=== PATIENT | female | born 1995 | race Caucasian/White ===

== ENCOUNTER → 2020-09-29 12:55 | Outpatient (CLI) | payer OTHER, SELFPAY ==
--- NOTE | ~2020-09-29 | US_ITS ---
EXAMINATION: US OB transvaginal DATE: 09/29/2020 13:26 INDICATION: Early . History of spontaneous . TECHNIQUE: Real-time transvaginal pelvic ultrasound was performed. COMPARISON: None. FINDINGS: The uterus measures 7.6 x 4.2 x 5.7 cm. There is an intrauterine gestational sac. A yolk sac is ident ified. The crown rump length measures 4 mm, which correlates with an estimated gestational age of 6 weeks and 0 day(s) (+/-) 4 day(s). heart motion is identified measuring 113 beats per min [place] (bpm) by M-mode Doppler. The right ovary measures 3.5 x 1.7 x 2.5 cm. The left ovary measures 3.2 x 1.8 x 3.3 cm. There is no free fluid in the pelvis. IMPRESSION: 1. Single living intrauterine gestation with estimated date of delivery of 05/25/2021. Reviewed, dictated and finalized at location A. SPEED OPERATOR IMPRESSION: 1. Single living intrauterine gestation with estimated date of delivery of 05/06.
== END ==
PROVIDERS: Visit Provider Obstetrics & Gynecology
DX: O09.291 Supervision of pregnancy with other poor reproductive or obstetric history, first trimester (principal); Z3A.01 Less than 8 weeks gestation of pregnancy
CPT/HCPCS: 76817

== ENCOUNTER → 2020-10-07 15:52 | Outpatient (CLI) | payer OTHER, SELFPAY ==
--- NOTE | ~2020-10-07 | US_ITS ---
EXAMINATION: US OB transvaginal DATE: 10/07/2020 16:15 INDICATION: Spotting during first trimester of TECHNIQUE: Real-time pelvic ultrasound was performed. The interpreting radiologist was not present fo r the study. COMPARISON: 09/29/2020 FINDINGS: The uterus measures 9.2 x 6.2 x 6.5. There is an intrauterine gestational sac. A yolk sac and p ole are identified. The crown rump length measures 11 mm, which correlates with an estimated gestatio nal age of 7 weeks and 1 day which is exactly concordant with estimated gestational age based upon th e prior ultrasound. heart motion is identified measuring 154 beats per minute (bpm) by M-mode D oppler. 9 x 5 x 4 mm hypoechoic region at the left side of the gestational sac, possibly a small subc horionic hematoma however on the cine grayscale images there appears to be some internal flow in this more likely represents a feeding vessel. The right ovary 2.8 x 1.4 x 1.8. The left ovary 3.1 x 2.1 x 3.2. 1.9 cm thick-walled centrally hypoec hoic likely corpus luteum cyst in the left ovary. There is an additional 1.5 similar anechoic cyst/fo llicle at the left ovary. There is no free fluid in the pelvis. IMPRESSION: 1. Single living fetus with heart rate of 154 bpm. 2. Gestational age by ultrasound of 7 weeks 1 day(s) with ultrasound estimated date of delivery (RICKI) of 05/25/2021. 3. 9 x 5 x 4 mm hypoechoic region at the left-sided gestational sac is equivocal for subchorionic hem atoma versus feeding vessel. Reviewed, dictated and finalized at location A. LING MACHINE OPERATOR IMPRESSION: 1. Single living fetus with heart rate of 154 bpm. 2. Gestational age by ultrasound of 7 weeks 1 day(s) with ultrasound estimated date of delivery (RICKI) of 05/25/2021. 3. 9 x 5 x 4 mm hypoechoic region at the left-sided gestational sac is equivoca l for subchorionic hematoma versus feeding vessel.
== END ==
PROVIDERS: Visit Provider Obstetrics & Gynecology
DX: O26.851 Spotting complicating pregnancy, first trimester (principal); Z3A.01 Less than 8 weeks gestation of pregnancy
CPT/HCPCS: 76817

== ENCOUNTER → 2020-10-21 08:20 | Outpatient (CLI) | payer OTHER, SELFPAY ==
--- NOTE | ~2020-10-21 | US_ITS ---
EXAMINATION: US OB limited DATE: 10/21/2020 08:39 INDICATION: Follow-up subchorionic hemorrhage TECHNIQUE: Real-time transabdominal obstetric ultrasound. FINDINGS: Comparison to ultrasound dated 10/07/2020 The uterus measures 10.3 x 6.6 x 8.5 cm. There is an intrauterine gestational sac, with pole id entified. heart rate is 177 BPM. No evidence for subchorionic hemorrhage on the current study. No free fluid in the pelvis. IMPRESSION: 1. Single living intrauterine with heart rate of 177 BPM. 2: Interval resolution of subchorionic hemorrhage. Reviewed, dictated and finalized at location A. ICAPPER HARNESS RACING
== END ==
PROVIDERS: Visit Provider Obstetrics & Gynecology
DX: O36.8910 Maternal care for other specified fetal problems, first trimester, not applicable or unspecified (principal); Z3A.00 Weeks of gestation of pregnancy not specified
CPT/HCPCS: 76815

== ENCOUNTER 2020-12-15 19:54 | Emergency (ER) | payer OTHER, SELFPAY ==
[2020-12-15 19:57] VITALS: BP 115/71; PULSE 67; RESP 20; TEMP 36.2; O2SAT 99
--- NOTE | 2020-12-15 20:11 | ECG_ITS ---
Measurements Intervals [place] Rate: 61 P: 35 [place]: 138 QRS: 43 QRSD: 106 T: 15 QT: 417 QTc: 422 Interpretive Statements SINUS RHYTHM BASELINE WANDER- I, II, AVR, AVL, AVF, V4-V6 BORDERLINE ECG Electronically Signed On 12-16-2020 6:26:16 COIL REWIND MACHINE OPERATOR by Harjinder Aguirre D.O.
[2020-12-15 20:23] LABS: Basophils Percent Auto 0.3 % (0.2-1.2); Eosinophils Absolute Auto 0.2 K/mm3 (0-0.3); Eosinophils Percent Auto 1.4 % (0-4.4); Hematocrit 37.2 % (37.0-47.0); Hemoglobin 12.9 g/dL (12.0-15.0); Immature Granulocyte Absolute 0.03 K/mm3 (0.00-0.031); Immature Granulocyte Percent A 0.3 % (0-0.5); Lymphocytes Absolute Auto 2.65 K/mm3 (0.9-3.2); Lymphocytes Percent Auto 24.6 % (18.3-44.2); Mean Corpuscular HGB Conc 34.7 g/dl (32-36); Mean Corpuscular Hemoglobin 30.9 pg (26-34); Mean Platelet Volume 9.3 fl (7.4-10.4); Monocytes Absolute Auto 0.7 K/mm3 (0.1-0.6); Monocytes Percent Auto 6.7 % (2.6-8.5); Neutrophils Absolute Auto 7.2 K/mm3 (1.3-6.7); Neutrophils Percent Auto 66.7 % (45.5-73.1); Platelet Count Result 216 k/mm3 (150-375); Red Blood Count 4.18 M/mm3 (4.2-5.4); Red Cell Distribution Width 12.6 % (11.5-14.5); White Blood Count 10.8 K/mm3 (4.5-10.0)
[2020-12-15 20:35] LABS: Anion Gap 6 mmol/L (8-16); Blood Urea Nitrogen 13 mg/dL (7-17); Calcium 9.5 mg/dL (8.4-10.2); Carbon Dioxide 26 mmol/L (22-30); Chloride 103 mmol/L (98-107); Estimated Glomerular Filt Rate > 60; Glucose 80 mg/dL (65-105); Potassium 3.4 mmol/L (3.4-5.0); Sodium 135 mmol/L (137-145)
[2020-12-15 20:39] VITALS: BP 97/61; PULSE 58
[2020-12-15 20:40] VITALS: BP 106/66; PULSE 61
[2020-12-15 20:41] VITALS: BP 106/70; PULSE 62
[2020-12-15] MEDS: SODIUM CHLORIDE 0.9% IV 1,000 ML 999 ML IV CONT (21:03)
[2020-12-15 22:07] VITALS: BP 94/61; PULSE 60; RESP 16; TEMP 36.6; O2SAT 97
--- NOTE | 2020-12-15 22:11 | ED.GENADULT ---
HPI - General Adult General Chief complaint: Syncope Stated complaint: syncope, 17 weeks Time Seen by Provider: 12/15/20 20:46 History of Present Illness HPI narrative: Patient is a 25-year-old female presents the emergency department with chief complaint of syncope. Patient reports that she was in the bathroom having a bowel movement and she started to feel as though she was going to pass out and briefly passed out. Patient states that she currently feels back to normal at this time denies chest pain denies shortness of breath. The patient reports that she has had a similar episode several weeks ago. Patient states that she has no other medical problems with except that she is 17 weeks . Related Data Home Medications Medication Instructions Recorded Confirmed docusate sodium [Stool Softener] PO 12/15/20 [id number] fum-folic ac-om3 pkg PO 12/15/20 [Daily ] sertraline mg 12/15/20 Allergies Allergy/AdvReac Type Severity Reaction Status Date / Time No Known Allergies Allergy Verified 12/15/20 20:05 Review of Systems Review of Systems: Narrative: A 10 system review of systems was completed on the patient and is negative except for what is stated in the HPI. Nursing and ancillary documentation was reviewed. PMFSH Comments Patient has negative past medical history Social history the patient denies smoking drinking or illicit drug use Exam Narrative: Exam Narrative: GENERAL: Well-appearing, well-nourished, and in no acute distress. HEAD: Normocephalic, atraumatic. EYES: PERRLA and EOMI. ENT: Nares clear, no rhinorrhea or epistaxis. Mucous membranes moist. NECK: Supple. CHEST: Clear to auscultation. No respiratory distress. HEART: Regular rate and rhythm. No murmur heard. Normal peripheral pulses. ABDOMEN: Soft, nontender, nondistended, normal active bowel sounds. EXTREMITIES: Normal range of motion. No edema. SKIN: Warm, dry, no rash. NEURO: No focal deficits. Alert and oriented x3. PSYCH: Normal mood and affect. Course Vital Signs Vital signs: Vital Signs Temperature 36.2 C L 12/15/20 19:57 Pulse Rate 67 12/15/20 19:57 Respiratory Rate 20 12/15/20 19:57 Blood Pressure 115/71 12/15/20 19:57 Pulse Oximetry 99 12/15/20 19:57 Temperature 36.6 C 12/15/20 22:07 Pulse Rate 60 12/15/20 22:07 Respiratory Rate 16 12/15/20 22:07 Blood Pressure 94/61 L 12/15/20 22:07 Pulse Oximetry 97 12/15/20 22:07 Medical Decision Making Vital Signs Vital Signs: Vital Signs Temperature 36.2 C L 12/15/20 19:57 Pulse Rate 67 12/15/20 19:57 Respiratory Rate 20 12/15/20 19:57 Blood Pressure 115/71 12/15/20 19:57 Pulse Oximetry 99 12/15/20 19:57 Temperature 36.6 C 12/15/20 22:07 Pulse Rate 60 12/15/20 22:07 Respiratory Rate 16 12/15/20 22:07 Blood Pressure 94/61 L 12/15/20 22:07 Pulse Oximetry 97 12/15/20 22:07 Lab Data Result diagrams: 12/15/20 20:14 12/15/20 20:14 Labs: Lab Results 12/15/20 12/15/20 12/15/20 Range/Units 20:14 20:14 21:59 WBC 10.8 H (4.5-10.0) K/mm3 RBC 4.18 L (4.2-5.4) M/mm3 Hgb 12.9 (12.0-15.0) g/dL Hct 37.2 (37.0-47.0) % MCV 89.0 (80-100) fl MCH 30.9 (26-34) pg MCHC 34.7 (32-36) g/dl RDW 12.6 (11.5-14.5) % Plt Count 216 (150-375) k/mm3 MPV 9.3 (7.4-10.4) fl Immature Gran % (Auto) 0.3 (0-0.5) % Neut % (Auto) 66.7 (45.5-73.1) % Lymph % (Auto) 24.6 (18.3-44.2) % Pacific % (Auto) 6.7 (2.6-8.5) % Eos % (Auto) 1.4 (0-4.4) % Baso % (Auto) 0.3 (0.2-1.2) % Lymph # (Auto) 2.65 (0.9-3.2) K/mm3 Pacific # (Auto) 0.7 H (0.1-0.6) K/mm3 Eos # (Auto) 0.2 (0-0.3) K/mm3 Baso # (Auto) 0.0 (0.0-0.1) K/mm3 Abs Immat Gran (auto) 0.03 (0.00-0.031) K/mm3 Absolute Neuts (auto) 7.2 H (1.3-6.7) K/mm3 Absolute Nucleated RBC 0.0 (0.0-0.012) K/mm3 Nucleated RBC % 0.0 (0
[2020-12-15 22:12] LABS: Add Urine Microscopic? YES; Amorphous Sediment Urine Few; Appearance Urine Cloudy (Clear); Bacteria Urine Trace /hpf; Bilirubin Urine Negative (Negative); Blood Urine Negative (Negative); Color Urine Yellow (Yellow); Glucose Urine UA Negative (Negative); Ketones Urine Negative (Negative); Leukocyte Esterase Ur Negative LEU/UL (Negative); Mucus Urine Rare /lpf; Nitrate Urine Negative (Negative); Protein Urine Negative (Negative); Specific Grav Ur 1.021 (1.001-1.035); Squamous Epithelial Cell Urine Many /hpf (Few); Urobilinogen Urine Negative mg/dL (<2.0)
[2020-12-15 22:44] VITALS: BP 110/72; PULSE 76; RESP 18; O2SAT 99
== END 2020-12-15 22:46 | disposition home or self-care (01) ==
PROVIDERS: Emergency Medicine; Emergency Provider Emergency Medicine; PCP Obstetrics & Gynecology
DX: R55 Syncope and collapse (principal)
CPT/HCPCS: 36415; 80048; 81001; 85025; 93005; 96360; 99284; J7030

== ENCOUNTER → 2020-12-22 15:25 | Outpatient (CLI) | payer OTHER, SELFPAY ==
--- NOTE | ~2020-12-22 | US_ITS ---
US OB >= 14 weeks Fetus DATE: 12/22/2020 16:05 INDICATION: anatomy screen TECHNIQUE: Real-time imaging and Doppler analysis COMPARISON: 10/21/2020 limited obstetrical ultrasound examination 09/29/2020 and 10/07/2020 obstetrical ultrasound examinations FINDINGS: Live maxwell intrauterine gestation, fetus in vertex presentation, longitudinal lie. Anterior placenta, lower margin 4.7 cm above the internal os. Subjectively normal amount of amniotic fluid. No evidence of cerebral ventriculomegaly. The cerebellum appears normal. Normal nuchal fo ld. Upper lip appears normal. The spine appears unremarkable on transverse and longitudinal joan ging. 4 chamber heart. Right outflow tract is demonstrated. Left outflow tract not optimally de monstrated. heart rate of 141 bpm. The diaphragm is intact. Fluid is demonstrated in the stomac h and urinary bladder. The kidneys appear unremarkable, without evidence of hydronephrosis. Thr ee-vessel umbilical cord with normal appearing insertion. 4 extremities are demonstrated. Biparietal diameter 4.35 cm; 19 weeks 1 day Head circumference 15.53 cm; 18 weeks 3 days Abdominal circumference 12.96 cm; 18 weeks 4 days Femur length 2.77 cm; 18 weeks 3 days Composite age by Hadlock formula based upon current biometrics would be 18 weeks 5 days +/- 1 week 2 days with RICKI is 05/20/2021, compared to 05/25/2021 by prior obstetrical ultrasound examinations. Estimated weight is 243.4 +/- 36.5 g Estimated weight-GP: 76.5% Head circumference/abdominal circumference 1.20, within normal range of 1.09 -1.26 Femur length/head circumference 17.84, within normal range of 16.01-18.21. IMPRESSION: Normal anatomy screen Reviewed, dictated and finalized at Location A. Reviewed, dictated and finalized at location B. PARTNER IMPRESSION: Normal anatomy screen
== END ==
PROVIDERS: Visit Provider Obstetrics & Gynecology
DX: Z34.92 Encounter for supervision of normal pregnancy, unspecified, second trimester (principal); Z3A.18 18 weeks gestation of pregnancy
CPT/HCPCS: 76805

== ENCOUNTER 2021-03-13 11:09 | Emergency (ER) | payer OTHER, SELFPAY ==
--- NOTE | ~2021-03-13 | CT_ITS ---
EXAMINATION: CTA chest PE protocol DATE: 03/13/2021 13:55 CDT INDICATION: Elevated d-dimer. Syncope. Shortness of breath. TECHNIQUE: Computed tomographic angiography (CTA) of the chest was performed with 100 mL Omnipaque-35 0 intravenous contrast. The dose-length product was 244.15 mGy-cm. Maximum intensity projection 3D-re constructions of the aorta and other arteries were constructed by the technologist on a separate work station. Automated exposure control and iterative reconstruction technique were employed. COMPARISON: Chest x-ray dated 03/13/2021 FINDINGS: Study is technically adequate without evidence for pulmonary embolism. No significant pleur al or pericardial effusion. Cardiomegaly. Small hiatal hernia. No thoracic lymphadenopathy. Shallow i nspiration with crowding of the pulmonary vessels. There is ill-defined groundglass opacification thr oughout both lungs, likely due to expiratory imaging. No pneumothorax. No endobronchial lesion. IMPRESSION: 1. No evidence for pulmonary embolism. 2: Diffuse ill-defined groundglass opacification, likely due to expiratory imaging. Pneumonia less fa vored. Reviewed, dictated and finalized at location A. IMPRESSION: 1. No evidence for pulmonary embolism. 2: Diffuse ill-defined groundglass opacification, likely due to expiratory imag ing. Pneumonia less favored.
--- NOTE | ~2021-03-13 | US_ITS ---
EXAMINATION:US venous doppler LE BI INDICATION:Elevated d-dimer TECHNIQUE: Multiple grayscale, color flow and Doppler images of the right and left lower extremity de ep venous systems were obtained and reviewed. COMPARISON:No prior studies for comparison. FINDINGS: The common femoral, superficial femoral and popliteal veins demonstrate normal respiratory variation, augmentation and compressibility. Color flow is also seen within the posterior tibial, pe roneal, greater saphenous and profunda veins. IMPRESSION: 1: No lower extremity deep venous thrombosis. Reviewed, dictated and finalized at location A.
--- NOTE | ~2021-03-13 | XR_ITS ---
EXAMINATION: XR chest 2V 03/13/2021 12:49 INDICATION: Syncope. Weakness. PROCEDURE: AP and lateral views of the chest COMPARISON: No prior studies for comparison. FINDINGS: The lungs are clear. The cardiomediastinal silhouette is within normal limits. There are no pleural effusions. There is no pneumothorax suspected. IMPRESSION: 1: NO ACUTE CARDIOPULMONARY DISEASE. Reviewed, dictated and finalized at location A.
[2021-03-13 11:20] VITALS: BP 107/68; PULSE 70; RESP 18; O2SAT 97
--- NOTE | 2021-03-13 11:31 | ECG_ITS ---
Measurements Intervals [place] Rate: 69 P: 29 [place]: 145 QRS: 63 QRSD: 92 T: 43 QT: 389 QTc: 418 Interpretive Statements SINUS RHYTHM MINIMAL Q WAVES- HIGH LATERAL LEADS BORDERLINE ECG Electronically Signed On 03-13-2021 16:42:15 CDT by Harjinder Aguirre D.O.
--- NOTE | 2021-03-13 12:07 | ED.SYNCOPE ---
HPI - Syncope General Chief Complaint: Syncope Stated Complaint: Vomiting, Syncopal Episodes Time Seen by Provider: 03/13/21 11:42 Source: patient Mode of arrival: ambulatory Limitations: no limitations History of Present Illness HPI narrative: This is a 25-year-old , 30 weeks , that presents to the emergency department for syncopal episodes. Reports they have been ongoing over the last couple of months. Reports they have been more frequent over the last couple of weeks. Reports she will feel very hot and nauseous and then gets lightheaded. Reports she then passes out. She had 3 episodes in a row this morning. She also vomited after the episode. Denies hitting her head or any other specific injuries. Her significant other is with her who reports she is very sleepy after these episodes. Does report history of syncopal episode years ago. Reports some shortness of breath with exertion. Denies fever, chest pain, abdominal pain, dysuria, vaginal bleeding, or lower extremity edema. Related Data Home Medications Medication Instructions Recorded Confirmed [id number] fum-folic ac-om3 1 PO DAILY 12/15/20 [Daily ] sertraline 100 mg PO DAILY 03/13/21 03/13/21 Allergies Allergy/AdvReac Type Severity Reaction Status Date / Time No Known Allergies Allergy Verified 03/13/21 11:24 Review of Systems Review of Systems: Narrative: CONSTITUTIONAL: Denies fever CARDIOVASCULAR: Denies chest pain, or edema. RESPIRATORY: Reports dyspnea. GASTROINTESTINAL: Reports vomiting GENITOURINARY: Denies dysuria NEUROLOGIC: Denies headache, numbness, or weakness. All systems reviewed & are unremarkable except as noted in HPI and below PMFSH Past Medical History Medical History (Updated 03/13/21 @ 14:39 by Martha Turner PA-C) History of depression Social History Social History (Updated 03/13/21 @ 12:13 by Martha Turner PA-C) Smoking status: Never smoker Gender identity (if verbalized by the patient): Female Exam Narrative: Exam Narrative: GENERAL: Well-appearing, well-nourished, and in no acute distress. HEAD: Normocephalic, atraumatic. EYES: PERRLA and EOMI. ENT: Nares clear, no rhinorrhea or epistaxis. Mucous membranes moist. Oropharynx without tonsillar hypertrophy exudate or other lesions. Bilateral TMs pearly singh non-bulging NECK: Supple. No adenopathy or masses. CHEST: Clear to auscultation. No respiratory distress. No wheezes rales or rhonchi HEART: Regular rate and rhythm. No murmur heard. Normal peripheral pulses. ABDOMEN: Gravid, nontender EXTREMITIES: Normal range of motion. No edema. SKIN: Warm, dry, no rash. NEURO: No focal deficits. Alert and oriented x3. Cranial nerves II through XII grossly intact PSYCH: Normal mood and affect Course Consultations Consultation #1: Spoke with Dr. Briceno about patient and workup. Would like patient to be sent over to OB for nonstress test. She will follow-up with patient in clinic Date: 03/13/21 Time: 14:40 Consultation #2: Spoke with Dr. Wheatley about patient and work-up who would like patient to call tomorrow to make an appointment for follow-up Date: 03/13/21 Time: 14:40 Vital Signs Vital signs: Vital Signs Pulse Rate 70 03/13/21 11:20 Respiratory Rate 18 03/13/21 11:20 Blood Pressure 107/68 03/13/21 11:20 Pulse Oximetry 97 03/13/21 11:20 Pulse Rate 63 03/13/21 12:36 Respiratory Rate 20 03/13/21 12:30 Blood Pressure 102/55 L 03/13/21 12:36 Pulse Oximetry 99 03/13/21 12:30 MDM - Syncope MDM Narrative Medical decision making narrative: Patient presents to the emergency department, 30 weeks , for multiple syncopal episodes over the last couple of months. Reports that are becoming more frequent over the last couple of weeks. Reports she will feel nauseous and lightheaded and then loses consciousness. She does not report any prodromal chest pain, shortness of breath or palpitations. She does report s
[2021-03-13 12:25] LABS: Basophils Percent Auto 0.3 % (0.2-1.2); Eosinophils Absolute Auto 0.1 K/mm3 (0-0.3); Eosinophils Percent Auto 0.7 % (0-4.4); Immature Granulocyte Percent A 0.7 % (0-0.5); Lymphocytes Absolute Auto 1.49 K/mm3 (0.9-3.2); Lymphocytes Percent Auto 9.8 % (18.3-44.2); Mean Corpuscular HGB Conc 34.3 g/dl (32-36); Mean Corpuscular Hemoglobin 30.5 pg (26-34); Mean Corpuscular Volume 89.1 fl (80-100); Mean Platelet Volume 9.5 fl (7.4-10.4); Monocytes Absolute Auto 0.6 K/mm3 (0.1-0.6); Monocytes Percent Auto 3.9 % (2.6-8.5); Neutrophils Absolute Auto 12.8 K/mm3 (1.3-6.7); Neutrophils Percent Auto 84.6 % (45.5-73.1); Platelet Count Result 224 k/mm3 (150-375); Red Blood Count 3.93 M/mm3 (4.2-5.4); Red Cell Distribution Width 11.9 % (11.5-14.5); White Blood Count 15.2 K/mm3 (4.5-10.0)
[2021-03-13 12:30] VITALS: BP 102/59; PULSE 58; RESP 20; O2SAT 99
[2021-03-13] MEDS: SODIUM CHLORIDE 0.9% IV 1,000 ML 999 ML IV CONT (12:33)
[2021-03-13] MEDS: ONDANSETRON INJ 4 MG/2 ML VIAL IV PUSH (12:33)
[2021-03-13 12:34] VITALS: BP 99/59; PULSE 56
[2021-03-13 12:34] LABS: Alanine Aminotransferase 17 U/L (4-35); Albumin Level 3.7 g/dL (3.5-5.1); Alkaline Phosphatase 90 U/L (38-126); Anion Gap 9 mmol/L (8-16); Aspartate Amino Transferase 27 U/L (14-36); Bilirubin,Total 0.2 mg/dL (0.2-1.3); Blood Urea Nitrogen 8 mg/dL (7-17); Calcium 9.3 mg/dL (8.4-10.2); Carbon Dioxide 20 mmol/L (22-30); Chloride 107 mmol/L (98-107); Estimated CRCL calculation 161 ml/min; Estimated Glomerular Filt Rate > 60; Glucose 103 mg/dL (65-105); Lipase 81 U/L (23-300); Potassium 3.9 mmol/L (3.4-5.0); Sodium 136 mmol/L (137-145)
[2021-03-13 12:35] VITALS: BP 98/61; PULSE 55
[2021-03-13 12:35] LABS: INR 0.9; Partial Thromboplastin Time 24.3 SECONDS (22.3-36.8); Prothrombin Time 12.6 Seconds (11.1-14.7)
[2021-03-13 12:36] VITALS: BP 102/55; PULSE 63
[2021-03-13 12:38] LABS: D Dimer 1.11 ug/mL (<0.48)
[2021-03-13 12:43] LABS: Add Urine Microscopic? YES; Appearance Urine Cloudy (Clear); Bacteria Urine Trace /hpf; Bilirubin Urine Negative (Negative); Blood Urine Negative (Negative); Glucose Urine UA Negative (Negative); Ketones Urine Trace mg/dL (Negative); Leukocyte Esterase Ur 2+ LEU/UL (Negative); Mucus Urine Heavy /lpf; Nitrate Urine Negative (Negative); Protein Urine 1+ mg/dL (Negative); Specific Grav Ur 1.019 (1.001-1.035); Squamous Epithelial Cell Urine Many /hpf (Few); Urobilinogen Urine Negative mg/dL (<2.0); WBC Urine 21-30 /hpf
[2021-03-13 12:44] LABS: Color Urine Light Yellow (Yellow)
[2021-03-13 12:45] LABS: Troponin I < 0.012 ng/mL (0.000-0.034)
[2021-03-13 15:08] VITALS: BP 102/55; PULSE 63; RESP 20; O2SAT 100
--- NOTE | 2021-03-16 12:35 | WPDHOLTEREM ---
Holter/Event Monitor Holter/Event Monitor Date of procedure: 03/13/21 Procedure Type: 48 hour holter monitor Indications: Syncope Conclusion: 1. 48 hour holter monitor on 03/13/21. 2. Underlying rhythm is sinus rhythm. HR range 47-140 bpm; average HR 74 bpm. 3. There are 9 premature supraventricular complexes. No supraventricular tachycardia. 4. There is 1 premature ventricular complex. No ventricular tachycardia. 5. No sinoatrial or atrioventricular blocks. No significant pauses greater than 2 seconds. 6. No symptoms available for correlation.
== END 2021-03-13 15:10 | disposition home or self-care (01) ==
PROVIDERS: Physician Assistant; Emergency Provider Emergency Medicine; PCP Family Medicine
DX: O26.893 Other specified pregnancy related conditions, third trimester (principal); R55 Syncope and collapse; O99.343 Other mental disorders complicating pregnancy, third trimester; F32.9 Major depressive disorder, single episode, unspecified; Z3A.30 30 weeks gestation of pregnancy; R94.31 Abnormal electrocardiogram [ECG] [EKG]; R91.8 Other nonspecific abnormal finding of lung field; I49.3 Ventricular premature depolarization
CPT/HCPCS: 36415; 59025; 71046; 71275; 80053; 81001; 83690; 84484; 85025; 85380; 85610; 85730; 87086; 93005; 93225; 93226; 93970; 96361; 96374; 99284; J2405; J7030; Q9967

== ENCOUNTER 2021-03-13 15:03 | Outpatient (RCR) | payer OTHER, SELFPAY ==
[2021-03-13 15:57] VITALS: BP 109/72; PULSE 79
== END 2021-05-05 07:44 | disposition home or self-care (01) ==
LOC: ANHOBOP 15:03
PROVIDERS: PCP Family Medicine; Visit Provider Obstetrics & Gynecology
DX: O99.891 Other specified diseases and conditions complicating pregnancy (principal); R55 Syncope and collapse; Z3A.30 30 weeks gestation of pregnancy
CPT/HCPCS: 59025

== ENCOUNTER → 2021-04-21 13:59 | Outpatient (CLI) | payer OTHER, SELFPAY ==
--- NOTE | ~2021-04-21 | US_ITS ---
EXAMINATION: US OB follow up DATE: 04/21/2021 14:29 INDICATION: Small for gestational age TECHNIQUE: Real-time transabdominal obstetric ultrasound. FINDINGS: Comparison to multiple prior studies sequentially, with oldest reviewed study dated 2019. There is a single living fetus in vertex presentation. The placenta is anterior without placenta pre via. cardiac activity and movement is noted with a heart rate of 161 beats per minute. T he amniotic fluid volume is normal. WINSTON measures 17.4 cm. The following biometric data were obtained: BPD: 90mm corresponds to gestational age 36 weeks 5 days. Head circumference: 326mm corresponds to gestational age 37 weeks 0 days. Abdominal circumference: 332mm corresponds to gestational age 37 weeks 1 days. Femur length: 70mm corresponds to gestational age 35 weeks 5 days. Estimated weight: 3010grams +/- 452grams., 74th percentile IMPRESSION: 1. Single living intrauterine in vertex presentation with an estimated gestational age of 35 weeks 1 days by inititial ultrasound. EDC by initial ultrasound is 05/25/2021. 2. Normal placenta. Reviewed, dictated and finalized at location A. IMPRESSION: 1. Single living intrauterine in vertex presentation with an estimat ed gestational age of 35 weeks 1 days by inititial ultrasound. EDC by initial u ltrasound is 05/25/2021. 2. Normal placenta.
== END ==
PROVIDERS: Visit Provider Nurse Practitioner
DX: O36.5933 Maternal care for other known or suspected poor fetal growth, third trimester, fetus 3 (principal); Z3A.35 35 weeks gestation of pregnancy
CPT/HCPCS: 76816

== ENCOUNTER 2021-05-04 07:45 | Inpatient (IN) | payer OTHER, SELFPAY ==
[2021-05-04] VITALS (184 sets, daily range): BP systolic 79–120; BP diastolic 43–92; PULSE 47–239; RESP 16; TEMP 36.4–37.1; O2SAT 85–100
--- NOTE | 2021-05-04 08:50 | WPDANESEPP ---
Anes - Eval Pre Procedure Procedure: labor epidural Date/Time: 05/04/21 08:50 Surgeon: nikhil Pre Op Diagnosis: rom Patient Data Age: 25 Gender: F Height: Weight: Last Vital Signs Pulse 76 05/04/21 08:30 BP 107/69 05/04/21 08:30 Allergies Allergy/AdvReac Type Severity Reaction Status Date / Time No Known Allergies Allergy Verified 04/20/21 13:47 Home Medications Medication Instructions Recorded Confirmed Type [id number] fum-folic ac-om3 1 PO DAILY 12/15/20 History [Daily ] sertraline 100 mg PO DAILY 03/13/21 03/13/21 History ergocalciferol (vitamin D2) 1,250 mcg PO WEEKLY 04/20/21 04/20/21 History [Vitamin D2] Patient hx anesthesia problems: none Family hx anesthesia problems: none PMFSH Past Medical History Medical History (Updated 03/14/21 @ 00:00 by Piyush Meredith) History of depression Family History Family History (Updated 04/20/21 @ 13:50 by Louis Larsen RN) Grandparent Alzheimer disease Prostate carcinoma Leukemia Social History Social History (Updated 03/13/21 @ 12:13 by Martha Turner PA-C) Smoking status: Never smoker Substance use: never Gender identity (if verbalized by the patient): Female Spiritual care concerns: No Exam Day of Procedure 05/04/21 08:50
[2021-05-04 09:19] LABS: Basophils Percent Auto 0.4 % (0.2-1.2); Eosinophils Absolute Auto 0.1 K/mm3 (0-0.3); Eosinophils Percent Auto 1.8 % (0-4.4); Hematocrit 32.5 % (37.0-47.0); Hemoglobin 10.6 g/dL (12.0-15.0); Immature Granulocyte Absolute 0.02 K/mm3 (0.00-0.031); Immature Granulocyte Percent A 0.3 % (0-0.5); Lymphocytes Percent Auto 12.2 % (18.3-44.2); Mean Corpuscular HGB Conc 32.6 g/dl (32-36); Mean Corpuscular Hemoglobin 28.8 pg (26-34); Mean Corpuscular Volume 88.3 fl (80-100); Mean Platelet Volume 10.1 fl (7.4-10.4); Monocytes Absolute Auto 0.3 K/mm3 (0.1-0.6); Monocytes Percent Auto 4.2 % (2.6-8.5); Neutrophils Percent Auto 81.1 % (45.5-73.1); Platelet Count Result 162 k/mm3 (150-375); Red Blood Count 3.68 M/mm3 (4.2-5.4); Red Cell Distribution Width 12.3 % (11.5-14.5); White Blood Count 7.4 K/mm3 (4.5-10.0)
--- NOTE | 2021-05-04 09:23 | LDADM ---
This patient, Mecca Velez, was admitted to Labor/Delivery/Recovery 104 on 05/04/21 at 07:45. Plans for labor, pain management and were discussed with patient. Patient/family oriented to hospital policies and general routines including ID bracelet, bed and alarms, visiting hours, pain management, procedures, bathroom and other care routines, personal items, smoking policy, room service/diet and guest tray routines, infant security routines, and visiting hours. Patient/Family are encouraged to report perceived risks to care and to ask questions if they do not understand what they are told or what they should do. See OBIX for further documentation.
[2021-05-04] MEDS: LACTATED RINGERS 1,000 ML 125 ML IV CONT ×4 (13:21→23:24)
[2021-05-04] MEDS: OXYTOCIN 30 UNITS/NS 500 ML 30 UNITS/500 ML BAG 6 UNITS IV CONT (13:22)
[2021-05-05] VITALS (102 sets, daily range): BP systolic 63–128; BP diastolic 17–81; PULSE 25–201; RESP 16–18; TEMP 36.6–37.6; O2SAT 83–100; BMI 28.5
[2021-05-05] MEDS: AMPICILLIN 2 GM/NS 100 ML 2 GM/100 ML BAG IVPB (00:09)
[2021-05-05] MEDS: OXYTOCIN 10 UNITS/ML VIAL IM (03:31)
--- NOTE | 2021-05-05 03:52 | WPDOBADMIT ---
Obstetrics - Admit Note Admission Note: complete and pushing record reviewed. No pertinent additions to the history and/or any subsequent changes in the physical findings that are not consistent with the expected course of the were found. Additions to the history and/or subsequent changes in the physical findings follow. None.
--- NOTE | 2021-05-05 03:53 | PM.OBPRVD ---
OB - Delivery Note Procedure Delivery date: 05/05/21 Procedure: events: Labor Augmentation Intrapartal events: None Induction method: none Delivery augmentation: pitocin Delivery monitor: external FHT, external uterine and internal uterine Route of delivery: Laceration Description: Perineal - 2nd Degree Delivery repair: vicryl Specimen: No Quantitative Blood Loss (ml): 520 Anesthesia type: Epidural Disposition: floor Baby Date of : 05/05/21 Time of : 03:25 Weeks of gestation at delivery: 38 Infant gender: Male Weight (pounds): 7 Weight (ounces): 13 presentation: vertex position: Left Occiput Anterior Placenta delivery description: Spontaneous cord vessel description: 3 Vessels and Clamped/Cut score one minute: 7 score five minutes: 9
[2021-05-05] MEDS: OXYTOCIN 30 UNITS/NS 500 ML 30 UNITS/500 ML BAG 125 UNITS IV CONT (04:07)
[2021-05-05] MEDS: IBUPROFEN 600 MG TABLET PO ×2 (05:07→18:05)
--- NOTE | 2021-05-05 06:16 | PC.NURSE ---
PT arrived on unit via wheelchair accompanied by spouse and and taken to room 286. PT nauseated and extremely tired. Minimal teaching done and infant taken to nursery for assessment and to let parents both sleep. Oriented to room 286 and surroundings. PT introductions made and plan of care discussed per post , pain management, breast feeding, and daily care activities. PT and spouse both recipients of instructions and no barriers to learning identified. Using one to one discussion, mom baby care guide and demonstration to teach and instruct pt through out the shift. PT verbalized understanding
[2021-05-05 09:21] LABS: Rapid Plasma Reagin Non-Reactive (NonReactive)
[2021-05-05] MEDS: ACETAMINOPHEN 325 MG TABLET 650 MG PO ×2 (10:29→18:06)
[2021-05-05] MEDS: DOCUSATE SODIUM 100 MG CAPSULE PO ×2 (10:30→18:06)
[2021-05-05] MEDS: MULTIVIT/MIN/PREN/FOL AC/IRON TABLET 1 TAB PO (10:30)
[2021-05-05] MEDS: SERTRALINE HCL 50 MG TABLET 100 MG PO (10:31)
--- NOTE | 2021-05-05 13:20 | PC.NURSE ---
Consulted with patient, reviewed feeding cues, frequencies, duration of feedings, feeding elimination flow sheet, and signs of adequate intake. Demonstrated stimulation techniques to wake for feeding. Assisted with to breast. Reviewed positioning/alignment, holding breast and asymmetrical latch on. was able to latch correctly. Infant nursed eagerly with pauses in which he would come off breast and then relatch, steady draws and frequent swallowing noted. Reviewed signs of a correct latch, effective nursing and suck swallow ratio. was able to maintain latch without discomfort to mother. Nipple care reviewed. Instructed mother to call out for RN assistance if she is unable to latch for feeding or she has discomfort with nursing. Instructed feeding should be initiated three hours from start of last feeding or if feeding cues are noted before. Mother voiced understanding of information shared.
[2021-05-06] VITALS: BP 110/67; PULSE 61; RESP 16; TEMP 36.6; O2SAT 99
[2021-05-06 05:10] LABS: Hematocrit 24.9 % (37.0-47.0); Hemoglobin 8.3 g/dL (12.0-15.0)
--- NOTE | 2021-05-06 05:23 | PC.NURSE ---
Found mom sleeping in bed with in arms at 0332. Warned mom about it being dangerous to sleep with and that she can always send infant to nursery if she is too tired in order to prevent any accidents. Mom voiced understanding. Walked in on mom sleeping in bed with infant in arms again at 0523 and offered to take to nursery so she can get some sleep. Mom agreeable.
[2021-05-06 08:00] VITALS: BP 95/62; PULSE 58; RESP 16; TEMP 36.3; O2SAT 99
--- NOTE | 2021-05-06 08:01 | WPDANLDPN2 ---
Anes-Prog Note L&D Date/Time: 05/06/21 08:01 Comfortable throughout: labor and delivery Neuraxial method: epidural Epidural/Spinal procedure site: clean & non-tender Neuro status: Neuro function grossly intact. Cardiovascular status: normal Respiratory status: normal Airway patency: baseline Mental status: baseline Post-Op hydration status: normal Vital Signs: Last Vital Signs Temp 97.8 F 05/06/21 00:00 Pulse 61 05/06/21 00:00 Resp 16 05/06/21 00:00 BP 110/67 05/06/21 00:00 Pulse Ox 99 05/06/21 00:00 Pain score (VAS): 0 Post-procedural complaints: none Patient feedback: Patient satisfied with anesthetic care.
[2021-05-06] MEDS: MULTIVIT/MIN/PREN/FOL AC/IRON TABLET 1 TAB PO (08:59)
[2021-05-06] MEDS: POLYSACCHARIDE IRON COMPLEX 150 MG CAPSULE PO ×2 (08:59→17:55)
[2021-05-06] MEDS: DOCUSATE SODIUM 100 MG CAPSULE PO ×2 (08:59→17:55)
[2021-05-06] MEDS: SERTRALINE HCL 50 MG TABLET 100 MG PO (08:59)
--- NOTE | 2021-05-06 12:30 | PC.NURSE ---
Mother called out for assist with feeding. Mother reports infant is fussy at latch and is on and off several times during the feeding. Mother has garcia to both nipples and areolas from incorrect latching. Observed infant appears to have a thick and tight frenulum. Reported to primary RN. Reviewed feeding cues, frequencies, duration of feedings, feeding elimination flow sheet, and signs of adequate intake. Demonstrated stimulation techniques to wake for feeding. Assisted with to breast. Reviewed positioning/alignment in cross cradle, holding breast in ?U? hold and guided asymmetrical latch on. Infant made eager attempts and was unable to draw nipple in. Switched to football positioning. Within a few attempts, infant able to latch correctly. nursed eagerly with steady draws for bursts followed with long pausing with occasional swallowing noted. Suggested mother stimulate while feeding to increase stimulate, increase intake and to assist with maintaining deep latch. Reviewed signs of a correct latch, effective nursing and suck swallow ratio. Infant would slip to shallow latch, mother reports tenderness. Demonstrated how to adjust latch more deeply while feeding. Mother reports she can feel change in latch and has no tenderness. Nipple care reviewed of lanolin after feedings, warm compresses and gel pads as needed. Instructed mother to call out for RN assistance if she is unable to latch infant for feeding or she has discomfort with nursing. Instructed feeding should be initiated three hours from start of last feeding or if feeding cues are noted before. Mother voiced understanding of information shared. Mother is feeding as required and waking to feed if needed. Reviewed transition to breast milk, signs of adequate intake, and engorgement/relief. Instructed to call ICP if intake/output less than required. Reviewed regular medications mother is taking. Information provided per [place]. Reviewed community resources on the [employer] website and in the Mom/Baby guide. Information on outpatient services provided. Mother has no further questions at this time.
[2021-05-06 20:00] VITALS: BP 108/64; PULSE 77; RESP 18; TEMP 36.6; O2SAT 100
--- NOTE | 2021-05-06 20:00 | PC.NURSE ---
Patient viewed the discharge video Mother & Baby Care, The First Two Weeks online. Patient was given the opportunity and encouraged to ask questions. Patient verbalized understanding of information shared and has been given the mother/baby guide for home reference.
[2021-05-07 08:45] VITALS: BP 93/60; PULSE 55; RESP 18; TEMP 36.9; O2SAT 97
[2021-05-07] MEDS: DOCUSATE SODIUM 100 MG CAPSULE PO (10:57)
[2021-05-07] MEDS: SERTRALINE HCL 50 MG TABLET 100 MG PO (10:58)
[2021-05-07] MEDS: MULTIVIT/MIN/PREN/FOL AC/IRON TABLET 1 TAB PO (10:58)
[2021-05-07] MEDS: POLYSACCHARIDE IRON COMPLEX 150 MG CAPSULE PO (10:58)
--- NOTE | 2021-05-07 12:31 | PM.OBPNVD ---
OB - PN: Subj Subjective Date/time seen: 05/07/21 12:31 doing well no complaints OB - PN: Obj Data Labs CBC & Chem 7: 05/06/21 04:02 OB - PN A/P Assessment and Plan (1) (normal spontaneous vaginal delivery): Code(s): O80 - Encounter for full-term uncomplicated delivery Status: Acute Assessment and Plan: d/c home Time Spent With Patient Time: Total time spent is greater than 50% in coordination of care (as documented) at patient's floor/unit and/or counseling patient: Exam Narrative: Exam Narrative: ff below umbilicus
[2021-05-09 09:58] VITALS: BP 111/65; PULSE 61; RESP 18; TEMP 36.8; O2SAT 97
--- NOTE | 2021-05-16 09:39 | PM.OBDSVD ---
DS: Admitting Diagnosis Admitting Diagnosis Admitting Diagnosis: labor DS: Discharge Diagnosis Discharge Diagnosis (1) (normal spontaneous vaginal delivery): Code(s): O80 - Encounter for full-term uncomplicated delivery Status: Acute OB - DS: Summary OB Procedures : Ultrasound OB Procedures Intrapartum: Spontaneous Vag Delivery OB Procedures: : None Time Spent with Patient Time attestation: Total time spent providing and/or coordinating discharge services: Discharge Plan Discharge Attending physician on discharge: Lex Briceno Discharging Clinician: Lex Briceno Patient Disposition: Home, Self-Care Activity: may drive after 2 weeks and pelvic rest Diet: regular Discharge Instructions: Education: Mom and Baby Guide Given to: Mother Follow-Up: Call your delivering provider's office for an appointment to be seen in: 4 Weeks Mom and baby should come to the [facility] for the follow-up appointment. Appointment Date/Time: May 09, 2021 at 9:00 am What to expect at your follow-up visit: Blood Pressure Check Physical Assessment Call [phone] if you are unable to keep your appointment time. BREAST CARE: * Wear a snug supportive bra. * For engorgement discomfort: Breast Feeding: * Apply warm moist washcloths * Express milk as needed to relieve engorgement * Wear loose clothing * For sore nipples: * Identify correct latch-on * Apply warm moist washcloths before and after nursing * Air dry nipples after nursing * May apply Lansinoh cream to nipples EPISIOTOMY/PERINEAL CARE: * Until bleeding stops, use your francesco bottle after urinating * Change your pad frequently throughout the day * You may take sitz baths several times a day (fill your bathtub with warm water and soak for 20 minutes.) Do NOT bathe in the water * No tub baths until seen by your physician - You may shower ACTIVITY: * Rest as much as possible. * Do not exercise or lift anything heavier than your baby (such as laundry or other children.) * Avoid stairs or driving as much as possible. * Do not put anything into the vagina. No douching, tampons, or sexual activity until seen by physician. NOTIFY PHYSICIAN IF YOU HAVE ANY QUESTIONS OR IF ANY OF THE FOLLOWING SYMPTOMS OCCUR: * If your vaginal area becomes red, swollen, or more painful than what you have experienced in the hospital. * If your vaginal bleeding becomes foul smelling. * If your vaginal bleeding becomes more heavy than a period or if your bleeding changes from pink to bright red. However, you may pass an occasional walnut-sized clot once or twice for the first week . * If you experience a sharp, shooting pain in your calves. * If you discover a hard, reddened area on your breast or if you experience flu-like symptoms. DIET: * Eat regular, well-balanced meals. * Drink plenty of fluids daily. If , drink to thirst. Patient Instructions: Vaginal Delivery (DC) Stand Alone Forms: General Discharge Information Follow-up/Referrals: Lex Briceno MD [Physician] - Discharge Medications: Continued sertraline 100 mg tablet 100 mg PO DAILY RF: 0 Daily [phone] mg-mcg-mg Combo Pack 1 PO DAILY RF: 0 ergocalciferol (vitamin D2) [Vitamin D2] 1,250 mcg (50,000 unit) Capsule 1,250 mcg PO WEEKLY RF: 0 Date of admission: 05/04/21 07:45 Primary Care Provider: UNKNOWN,DOCTOR Admitting Provider: Lex Briceno Attending physician on admission: Lex Briceno Condition: Stable
== END 2021-05-07 13:20 | disposition home or self-care (01) | DRG 807 ==
LOC: ANHLDR 05-05 03:52 → ANHOB2 05-05 06:22
PROVIDERS: Admitting Provider Obstetrics & Gynecology; Visit Provider Obstetrics & Gynecology
DX: O42.02 Full-term premature rupture of membranes, onset of labor within 24 hours of rupture (principal); Z37.0 Single live birth; Z3A.37 37 weeks gestation of pregnancy; O99.344 Other mental disorders complicating childbirth; O70.1 Second degree perineal laceration during delivery; F32.9 Major depressive disorder, single episode, unspecified; O69.81X0 Labor and delivery complicated by cord around neck, without compression, not applicable or unspecified; F41.9 Anxiety disorder, unspecified
CPT/HCPCS: 36415; 85014; 85018; 85025; 86592; 86850; 86900; 86901; A9270; J0290; J2590; J2795; J7120

== ENCOUNTER 2021-11-04 12:57 | Emergency (ER) | payer OTHER, SELFPAY ==
[2021-11-04 13:20] VITALS: BP 112/70; PULSE 91; RESP 18; TEMP 37.4; O2SAT 99
[2021-11-04 13:21] VITALS: BP 112/70; PULSE 91; RESP 18; TEMP 37.4; O2SAT 99
--- NOTE | 2021-11-04 13:52 | ED.URI ---
HPI - URI/Sore Throat General Chief Complaint: Upper Respiratory Infection Stated Complaint: Sore Throat Time Seen by Provider: 11/04/21 13:52 Source: patient, family and RN notes reviewed Mode of arrival: ambulatory Limitations: no limitations History of Present Illness HPI Narrative: 26-year-old female presents to the [facility] with complaints of a sore throat since yesterday. Reports having a fever and headache yesterday. Take Tylenol which is completely resolved it. Reports that she is currently being treated for pinkeye. Reports being fully vaccinated for Covid and states that she had it over , a month ago elicited complaint: fever and sore throat Related Data Home Medications Medication Instructions Recorded Confirmed sertraline 100 mg PO DAILY 03/13/21 11/04/21 ergocalciferol (vitamin D2) 1,250 mcg PO WEEKLY 04/20/21 11/04/21 [Vitamin D2] norethindrone (contraceptive) 0.35 mg PO DAILY 11/04/21 11/04/21 [Incassia] ofloxacin 0.3 drp OPHTHALMIC (EYE) 11/04/21 11/04/21 DIRECTED Allergies Allergy/AdvReac Type Severity Reaction Status Date / Time No Known Allergies Allergy Verified 11/04/21 13:21 Review of Systems Review of Systems: All systems reviewed & are unremarkable except as noted in HPI and below Constitutional: Constitutional: Reports as per HPI, Denies chills and Reports fever(s) (100.3 yesterday) Eyes: Eyes: Reports no additional eye complaints ENT: Reports as per HPI and Reports sore throat Cardiovascular: Cardiovascular: Reports no additional cardiovascular complaints and Denies chest pain Respiratory: Respiratory: Reports no additional respiratory complaints, Denies cough and Denies dyspnea Gastrointestinal: Gastrointestinal: Reports no additional gastrointestinal complaints, Denies abdominal pain, Denies nausea and Denies vomiting Musculoskeletal: Musculoskeletal: Reports no additional musculoskeletal complaints Integumentary/Breasts: Skin/Breast: Reports system reviewed and no additional complaints, except as docu Neurologic: Reports system reviewed and no additional complaints, except as documented Psychiatric: Psychiatric: Reports no additional psychiatric complaints Allergic/Immunologic: Allergic/Immunologic: Reports no additional allergic/immunologic complaints PMFSH Past Medical History Medical History (Updated 11/04/21 @ 19:48 by Elba Salinas) History of depression (normal spontaneous vaginal delivery) Family History Family History (Updated 04/20/21 @ 13:50 by Louis Larsen RN) Grandparent Alzheimer disease Prostate carcinoma Leukemia Social History Social History (Updated 03/13/21 @ 12:13 by Martha Turner PA-C) Smoking status: Never smoker Substance use: never Gender identity (if verbalized by the patient): Female Spiritual care concerns: No Exam Const: General: healthy appearing, no acute distress and alert Nutritional Appearance: well nourished Orientation/consciousness: patient oriented x3 Limitations: no limitations HENMT: Head: normal to inspection Ears: external ears normal, TM's normal bilaterally and EAC's normal General nose exam: Normal external nose present Face and sinus: normal facial exam Mouth: Yes Normal oral and palatal mucosa present Throat: tonsils normal, uvula midline, postnasal drainage and no uvular edema Eyes: Conjunctivae: conjunctivae normal Pupils: Equal, round and reactive pupils present Neck: Neck: normal visual inspection, no lymphadenopathy and no meningeal signs Chest: Chest palpation & inspection: normal inspection of the chest Resp: Effort & Inspection: normal respiratory effort Auscultation: clear to auscultation bilaterally Cardio: Rate: regular rate Rhythm: regular rhythm Back/Spine/Pelvis: Back: no CVA tenderness Skin: General skin exam: normal color Rashes: no rashes Wounds: no wounds Neuro: General: patient oriented x3, moves all extremities, no menin
== END 2021-11-04 14:03 | disposition home or self-care (01) ==
PROVIDERS: Emergency Provider Nurse Practitioner; PCP Family Medicine
DX: R09.82 Postnasal drip (principal); J02.9 Acute pharyngitis, unspecified
CPT/HCPCS: 87081; 87880; 99213; G0463

== ENCOUNTER 2022-06-19 19:44 | Emergency (ER) | payer OTHER, SELFPAY ==
--- NOTE | ~2022-06-19 | XR_ITS ---
EXAMINATION: XR chest 2V DATE: 06/19/2022 20:30 INDICATION: Shortness of breath. Midsternal chest pain. TECHNIQUE: Frontal and lateral views of the chest were obtained. COMPARISON: Chest 2 views 03/13/21, chest CT 03/13/21 FINDINGS: There is no pneumonia, pleural effusion, or pneumothorax. The heart size is normal. IMPRESSION: 1. No acute cardiopulmonary disease. Reviewed, dictated and finalized at location A.
[2022-06-19 20:02] VITALS: BP 94/70; PULSE 89; RESP 20; TEMP 37.7; O2SAT 100
--- NOTE | 2022-06-19 20:08 | ECG_ITS ---
Measurements Intervals [place] Rate: 74 P: 28 NC: 138 QRS: 66 QRSD: 91 T: 28 QT: 364 QTc: 406 Interpretive Statements SINUS RHYTHM NORMAL ECG COMPARED TO ECG 03/13/2021 11:24:51 NO SIGNIFICANT CHANGES Electronically Signed On 06-20-2022 8:47:19 CDT by Keven Scott M.D.
[2022-06-19 20:26] LABS: Basophils Percent Auto 0.3 % (0.2-1.2); Eosinophils Percent Auto 0.2 % (0-4.4); Hematocrit 39.1 % (37.0-47.0); Hemoglobin 12.5 g/dL (12.0-15.0); Immature Granulocyte Absolute 0.03 K/mm3 (0.00-0.031); Immature Granulocyte Percent A 0.3 % (0-0.5); Lymphocytes Absolute Auto 0.87 K/mm3 (0.9-3.2); Lymphocytes Percent Auto 7.7 % (18.3-44.2); Mean Corpuscular Hemoglobin 28.3 pg (26-34); Mean Corpuscular Volume 88.5 fl (80-100); Mean Platelet Volume 9.6 fl (7.4-10.4); Monocytes Absolute Auto 0.5 K/mm3 (0.1-0.6); Monocytes Percent Auto 4.4 % (2.6-8.5); Neutrophils Absolute Auto 9.9 K/mm3 (1.3-6.7); Neutrophils Percent Auto 87.1 % (45.5-73.1); Platelet Count Result 212 k/mm3 (150-375); Red Blood Count 4.42 M/mm3 (4.2-5.4); Red Cell Distribution Width 13.3 % (11.5-14.5); White Blood Count 11.4 K/mm3 (4.5-10.0)
[2022-06-19 20:45] LABS: Alanine Aminotransferase 20 U/L (6-35); Albumin Level 4.7 g/dL (3.5-5.1); Alkaline Phosphatase 64 U/L (38-126); Anion Gap 11 mmol/L (8-16); Aspartate Amino Transferase 28 U/L (14-36); Bilirubin,Total 0.3 mg/dL (0.2-1.3); Blood Urea Nitrogen 15 mg/dL (7-17); Calcium 9.4 mg/dL (8.4-10.2); Carbon Dioxide 24 mmol/L (22-30); Chloride 101 mmol/L (98-107); Estimated CRCL calculation 114 ml/min; Estimated Glomerular Filt Rate > 60; Glucose 106 mg/dL (65-110); Potassium 3.6 mmol/L (3.4-5.0); Sodium 136 mmol/L (137-145)
[2022-06-19 21:50] VITALS: PULSE 83
[2022-06-19 21:51] VITALS: BP 111/81; PULSE 89; RESP 15; O2SAT 100
[2022-06-19 21:58] VITALS: O2SAT 100
--- NOTE | 2022-06-19 22:42 | ED.GENADULT ---
HPI - General Adult General Chief complaint: Shortness of Breath/Dyspnea Stated complaint: sob Time Seen by Provider: 06/19/22 22:29 History of Present Illness HPI narrative: 18-year-old female presents emergency room secondary to sharp right-sided chest pain. She states it started earlier today. It is slightly pain that starts on the right lateral aspect of her chest and comes across to the anterior portion of her chest. It is very sharp in nature. When she tries to take a deep breath cough or laugh the pain is like a stabbing sensation. Denies any chills or fevers. She denies any cough congestion. No upper respiratory type symptoms have been noted prior to this. She had nothing like this before. She has no significant past medical history. Related Data Home Medications Medication Instructions Recorded Confirmed sertraline 100 mg tablet 100 mg PO DAILY 03/13/21 11/04/21 ergocalciferol (vitamin D2) 1,250 1,250 mcg PO WEEKLY 04/20/21 11/04/21 mcg (50,000 unit) capsule (Vitamin D2) norethindrone (contraceptive) 0.35 0.35 mg PO DAILY 11/04/21 11/04/21 mg tablet (Incassia) ofloxacin 0.3 % eye drops 0.3 drp ophthalmic (eye) 11/04/21 11/04/21 DIRECTED Allergies Allergy/AdvReac Type Severity Reaction Status Date / Time No Known Allergies Allergy Verified 06/19/22 20:07 Review of Systems Review of Systems: CONSTITUTIONAL: Denies fever, chills, or sweats. EYES: Denies visual changes, redness, or discharge. ENT: Denies rhinorrhea, congestion, sore throat, or otalgia. CARDIOVASCULAR: Sharp pleuritic right-sided chest pain. No palpitations. RESPIRATORY: Denies cough or dyspnea. GASTROINTESTINAL: Denies abdominal pain, nausea, vomiting, or diarrhea. GENITOURINARY: Denies dysuria or hematuria. SKIN: Denies rash or itching. MUSCULOSKELETAL: Denies back pain, joint pain, or myalgia. No swelling to her legs. NEUROLOGIC: Denies headache, numbness, or weakness. PSYCHIATRIC: Denies anxiety or depression. [facility] Past Medical History Medical History History of depression (normal spontaneous vaginal delivery) Family History Family History Grandparent Alzheimer disease Prostate carcinoma Leukemia Social History Social History Smoking status: Never smoker Substance use: never Gender identity (if verbalized by the patient): Female Spiritual care concerns: No Exam Narrative: APPEARANCE: Well appearing, no pain or distress, well-nourished. Head Normocephalic and atraumatic. EYES: PERRLA/EOMI, conjunctivae clear. NOSE: Normal with no drainage EARS:TMS clear with [place], with good light reflex. THROAT: Pharynx clear, no exudate. NECK: Supple. No adenopathy, no masses. RESPIRATORY: Airway patent, respirations nonlabored. Clear to auscultation bilaterally, no rales, rhonchi, wheezing. CARDIOVASCULAR: Regular rate and rhythm without murmurs, rubs, or gallops. ABDOMINAL: Soft, nontender, nondistended, no hepatosplenomegaly Musculoskeletal: Moves all extremities. Strength/ROM intact, No edema, No calf tenderness. NEURO: Alert. Cranial nerves II through XII intact. Normal gait. Good coordination. Nonfocal examination. SKIN:: Warm, dry. Normal Color PSYCHIATRIC: Normal affect/mood, normal interaction Course Vital Signs Vital signs: Vital Signs Temperature 99.8 F H 06/19/22 20:02 Pulse Rate 89 06/19/22 20:02 Respiratory Rate 20 06/19/22 20:02 Blood Pressure 94/70 L 06/19/22 20:02 Pulse Oximetry 100 06/19/22 20:02 Oxygen Delivery Room Air 06/19/22 20:02 Temperature 99.8 F H 06/19/22 20:02 Pulse Rate 89 06/19/22 21:51 Respiratory Rate 15 06/19/22 21:51 Blood Pressure 111/81 06/19/22 21:51 Pulse Oximetry 100 06/19/22 21:58 Oxygen Delivery Room Air 06/19/22 21:58 Medical Decision Making MDM Na
[2022-06-19] MEDS: NAPROXEN 500 MG TABLET PO (22:45)
[2022-06-19 22:48] VITALS: BP 118/81; PULSE 87; RESP 15; O2SAT 99
== END 2022-06-19 22:51 | disposition home or self-care (01) ==
LOC: ANHED 22:50
PROVIDERS: Emergency Provider Emergency Medicine; PCP Family Medicine
DX: R09.1 Pleurisy (principal); F32.A Depression, unspecified
CPT/HCPCS: 36415; 71046; 80053; 85025; 93005; 99284; A9270

== ENCOUNTER 2023-10-30 08:25 | Emergency (ER) | payer OTHER, SELFPAY ==
[2023-10-30 08:35] VITALS: BP 113/64; PULSE 85; RESP 16; TEMP 36.8; O2SAT 98
--- NOTE | 2023-10-30 08:52 | ED.URI ---
HPI - URI/Sore Throat General Chief Complaint: Upper Respiratory Infection Stated Complaint: sore throat Time Seen by Provider: 10/30/23 08:52 Source: patient Mode of arrival: ambulatory Limitations: no limitations History of Present Illness HPI Narrative: 28-year-old female presents with complaint of 3 days of body aches, chills, headache, sore throat. Afebrile. Denies nausea vomiting. No cough or congestion. Taking ibuprofen to treat pain. No known strep exposure. All systems reviewed and negative except as noted above. Related Data Home Medications Medication Instructions Recorded Confirmed escitalopram oxalate 10 mg tablet 10 mg PO DAILY 10/30/23 10/30/23 (Lexapro) Allergies Allergy/AdvReac Type Severity Reaction Status Date / Time No Known Allergies Allergy Verified 10/30/23 09:23 Review of Systems Review of Systems: CONSTITUTIONAL: Denies fever. Reports chills, or sweats. EYES: Denies visual changes, redness, or discharge. ENT: Denies rhinorrhea, congestion . Reports sore throat. Denies otalgia. CARDIOVASCULAR: Denies chest pain, palpitations, or edema. RESPIRATORY: Denies cough or dyspnea. GASTROINTESTINAL: Denies abdominal pain, nausea, vomiting, or diarrhea. GENITOURINARY: Denies dysuria or hematuria. SKIN: Denies rash or itching. MUSCULOSKELETAL: Denies back pain, joint pain. Reports myalgia. NEUROLOGIC: Denies headache, numbness, or weakness. PSYCHIATRIC: Denies anxiety or depression. All other systems reviewed are negative, except as documented in HPI. PMFSH Past Medical History Medical History History of depression (normal spontaneous vaginal delivery) Family History Family History Grandparent Alzheimer disease Prostate carcinoma Leukemia Social History Social History Smoking status: Never smoker Substance use: never Gender identity (if verbalized by the patient): Female Spiritual care concerns: No Comments At time of signature, agree with nursing past medical, surgical, social and family history. There is no relevant family history pertinent to the presenting complaint. Exam Narrative: GENERAL: This is a well-nourished, well-developed patient, in no apparent distress. HEAD: normocephalic, atraumatic. EYES: PERRL. Sclera clear/white. Vision is grossly intact. EARS: External ears normal, auditory canals clear and without drainage, TMs normal without perforation. Hearing grossly intact. NOSE: External nose normal with no obvious nasal discharge, nares without redness, no rhinorrhea. THROAT: Mucous membranes moist, mild erythema without swelling, exudates. NECK: Neck supple, non-tender without lymphadenopathy, masses or thyromegaly. CARDIOVASCULAR: Regular rate and rhythm without murmurs, gallops, or rubs. RESPIRATORY: Clear to auscultation. Breath sounds equal bilaterally. No wheezes, rales, or rhonchi. SKIN: warm, Dry, intact with no suspicious lesions or rash, good texture and turgor. NEURO: awake, alert, and oriented to person, place and time. There were no obvious focal neurologic abnormalities. EXTREMITIES: No joint tenderness, effusion, or edema noted. Course Course Level of Care: Express Care Visit Vital Signs Vital signs: Vital Signs Temperature 36.8 C 10/30/23 08:35 Pulse Rate 85 10/30/23 08:35 Respiratory Rate 16 10/30/23 08:35 Blood Pressure 113/64 10/30/23 08:35 Pulse Oximetry 98 10/30/23 08:35 Oxygen Delivery Room Air 10/30/23 08:35 Temperature 36.8 C 10/30/23 08:35 Pulse Rate 85 10/30/23 08:35 Respiratory Rate 16 10/30/23 08:35 Blood Pressure 113/64 10/30/23 08:35 Pulse Oximetry 98 10/30/23 08:35 Oxygen Delivery Room Air 10/30/23 08:35 Reviewed MDM - URI/Sore Throat MDM Narrative Medical decision making na
== END 2023-10-30 09:35 | disposition home or self-care (01) ==
PROVIDERS: Emergency Provider Nurse Practitioner Family; PCP Family Medicine
DX: J02.8 Acute pharyngitis due to other specified organisms (principal); Z20.822 Contact with and (suspected) exposure to COVID-19
CPT/HCPCS: 87081; 87426; 87804; 87880; 99213; C9803; G0463